=== PATIENT | female | born 2000 | race Asian ===

== ENCOUNTER → 2021-04-12 | Outpatient (CLI) | payer OTHER ==
--- NOTE | 2021-04-12 12:06 | REP ---
INDICATION: DATING/ANATOMY, FAILED MEDICAL INDUCED AB. COMPARISON: None. TECHNIQUE: Transabdominal scanning FINDINGS: Multiple ultrasonographic images of the gravid uterus shows a single living intrauterine gestation in the cephalic presentation. Doppler interrogation of the heart shows a heart rate of 147 beats per minute. The placenta is posterior and not low-lying. The cervix measures 3.1 cm in length and is closed. The subjective amniotic fluid volume is within normal limits. BPD: 6 cm 24 weeks 2 days HC: 22.2 cm 24 weeks 2 days AC: 18.0 cm 22 weeks 6 days FL: 3.9 cm 22 weeks 5 days The estimated weight is 551 g which is at the 43rd percentile. anatomical structures seen to be unremarkable are as follows: Thalami, cavum septum pellucidum, cerebellum, cisterna magna, cerebral ventricles, spine, kidneys, urinary bladder, stomach, cord insertion, three-vessel umbilical cord, four-chamber heart, ventricular outflow tracts, upper lip, and extremities. IMPRESSION: Single living intrauterine gestation as described above with an estimated gestational age of 23 weeks 3 days via composite criteria and an estimated date of delivery of 08/06/2021 by today's exam. No anomalies were detected. <Electronically signed by Jesus Edwards > 04/12/21 2904
== END ==
LOC: M RAD 11:01
PROVIDERS: ATTEND Advanced Practice Midwife
DX: Z34.92 Encounter for supervision of normal pregnancy, unspecified, second trimester (principal); Z3A.23 23 weeks gestation of pregnancy

== ENCOUNTER 2021-07-10 13:43 | Inpatient (IN) | payer OTHER ==
[2021-07-10] VITALS (7 sets, daily range): BP systolic 105–127; BP diastolic 62–82
[~2021-07-10] VITALS: Ht 157.5 cm; Wt 62.6 kg
[2021-07-10] MEDS ORDERED: CARBOPROST TROMETHAMINE 250 MCG/ML AMP IM PRN (14:20)
[2021-07-10] MEDS ORDERED: TRANEXAMIC ACID INJection 1,000 MG in NS 100 ML IV PRN (14:20)
[2021-07-10] MEDS ORDERED: LIDOCAINE 1% MDV 20ML VIAL INFIL PRN (14:20)
[2021-07-10] MEDS ORDERED: METHYLERGONOVINE MALEATE 0.2 MG/ML VIAL (J2210) IM PRN (14:20)
[2021-07-10] MEDS ORDERED: OXYTOCIN DRIP 30 UNITS in IV 1 EA IV PRN ×4 (14:20)
[2021-07-10] MEDS ORDERED: LACTATED RINGER'S 1000 ML IV ONE (14:20)
[2021-07-10] MEDS ORDERED: PENICILLIN G POTASSIUM IV 5 MU in D5W MINI-BAG PLUS 100 ML IV STA (14:20)
[2021-07-10] MEDS ORDERED: PRENTAB9 PO (14:28)
[2021-07-10] MEDS ORDERED: HOME MED LIST COMPLETE! XX SCH (14:30)
[2021-07-10] MEDS: BETAMETHASONE SOLUSPAN 6MG/ML 5ML VIAL (J0702 PER 3MG) IM SCH (14:43)
[2021-07-10 15:37] LABS: BASO % 0.3 % (0.0-1.0); EOS # 0.2 10^3/uL (0.0-0.5); EOS % 1.4 % (0.0-3.0); HEMATOCRIT 34.4 % (36.0-47.0); HEMOGLOBIN 11.7 g/dl (12.0-15.5); LYMPH # 1.3 10^3/uL (1.5-5.0); LYMPH % 11.7 % (24.0-44.0); MEAN CORPUSCULAR HEMOGLOBIN 30.6 pg (27.0-33.0); MEAN CORPUSCULAR VOLUME 90.1 fl (80.0-96.0); MONO % 8.4 % (2.0-8.0); NEUTROPHILS # 8.7 10^3/uL (1.5-8.5); NEUTROPHILS % 76.4 % (36.0-66.0); PLATELET COUNT, AUTOMATED 260 10^3/uL (150-450); RED BLOOD COUNT 3.82 10^6/uL (4.00-5.40); WHITE BLOOD COUNT 11.4 10^3/uL (4.0-10.0)
[2021-07-10] MEDS: PENICILLIN G POTASSIUM IV 2.5 MU in IV 1 EA IV SCH ×2 (19:21→23:30)
[2021-07-11] VITALS (16 sets, daily range): BP systolic 106–141; BP diastolic 58–88
[2021-07-11] MEDS: PENICILLIN G POTASSIUM IV 2.5 MU in IV 1 EA IV SCH ×6 (03:25→23:07)
[2021-07-11] MEDS: LR 1,000 ML IV SCH (08:48)
[2021-07-11] MEDS: BETAMETHASONE SOLUSPAN 6MG/ML 5ML VIAL (J0702 PER 3MG) IM SCH (14:41)
[2021-07-11] MEDS ORDERED: LR 1,000 ML IV SCH (17:35)
[2021-07-11] MEDS ORDERED: OXYTOCIN DRIP 30 UNITS in IV 1 EA IV SCH (17:35)
[2021-07-11] MEDS ORDERED: miSOPROStol 50MCG 1/2 TABLET PO ONE (17:35)
[2021-07-11] MEDS ORDERED: diphenhydrAMINE 50MG/ML VIAL (J1200) IV STA (19:48)
[2021-07-12] VITALS (13 sets, daily range): BP systolic 106–143; BP diastolic 58–82
[2021-07-12] MEDS: miSOPROStol 50MCG 1/2 TABLET PO SCH ×6 (00:05→20:00)
[2021-07-12] MEDS: PENICILLIN G POTASSIUM IV 2.5 MU in IV 1 EA IV SCH ×2 (03:24→07:36)
[2021-07-12] MEDS ORDERED: PROMETHAZINE INJ 25 MG/ML VIAL (J2550) IM ONE (04:20)
[2021-07-12] MEDS ORDERED: BUTORPHANOL 2 MG/ML INJ (J0595) IV ONE (04:20)
[2021-07-12] MEDS: LR 1,000 ML IV SCH (08:19)
[2021-07-12] MEDS: PRENATAL VITAMINS CHEWABLE TABLET PO SCH (09:00)
[2021-07-12] MEDS ORDERED: OXYTOCIN DRIP 30 UNITS in IV 1 EA IV SCH (10:55)
[2021-07-12] MEDS ORDERED: ACETAMINOPHEN TAB 650MG DOSE (2X325MG) PO PRN (10:55)
[2021-07-12] MEDS ORDERED: IBUPROFEN 800 MG TAB PO PRN (10:55)
[2021-07-12] MEDS ORDERED: MEASLES,MUMPS,RUBELLA VACCINE INJ (MMR-II) (90707) SC SCH (10:55)
[2021-07-12] MEDS ORDERED: PROMETHAZINE 25 MG TAB PO PRN (10:55)
[2021-07-12] MEDS ORDERED: DIBUCAINE 1% OINTMENT 30GM TOP PRN (10:55)
[2021-07-12] MEDS ORDERED: RHOGAM 300 MCG (1500 IU) INJ (J2790) IM SCH (10:55)
[2021-07-12] MEDS ORDERED: IBUPROFEN 600MG TAB PO PRN (10:55)
[2021-07-12] MEDS ORDERED: ACETAMINOPHEN 500 MG TAB PO PRN (10:55)
[2021-07-12] MEDS: DOCUSATE SODIUM 100MG CAPSULE PO PRN (21:22)
[2021-07-13 05:54] VITALS: BP 124/79
[2021-07-13 05:57] VITALS: BP 124/79
[2021-07-13] MEDS: DOCUSATE SODIUM 100MG CAPSULE PO PRN ×2 (09:48→21:27)
[2021-07-13] MEDS: PRENATAL VITAMINS CHEWABLE TABLET PO SCH (09:48)
[2021-07-13 18:06] VITALS: BP 116/61
[2021-07-14 06:00] VITALS: BP 128/75
[2021-07-14] MEDS: PRENATAL VITAMINS CHEWABLE TABLET PO SCH (08:37)
== END 2021-07-14 14:10 | disposition home or self-care (01) | DRG 807 ==
LOC: M LDO 13:43 → M LDI 14:08 → M OBS 07-12 13:09
PROVIDERS: ADMIT Obstetrics & Gynecology; ATTEND Obstetrics & Gynecology
PROC: 3E0DXGC Introduction of Other Therapeutic Substance into Mouth and Pharynx, External Approach (ICD-10-PCS; 2021-07-11)
PROC: 10E0XZZ Delivery of Products of Conception, External Approach (ICD-10-PCS; principal; 2021-07-12)
DX: O42.013 Preterm premature rupture of membranes, onset of labor within 24 hours of rupture, third trimester (principal); Z37.0 Single live birth; Z3A.36 36 weeks gestation of pregnancy; O99.824 Streptococcus B carrier state complicating childbirth